=== PATIENT | female | born 1950 | race African-American/Black ===

== ENCOUNTER 2017-11-29 08:03 | Inpatient (IN) | payer OTHER ==
[~2017-11-29] VITALS: Ht 167.6 cm; Wt 80.0 kg
[~2017-11-29 08:03] MED LIST: ASPIR 8181 MG PO; ATORVASTATIN CA40 M1 PO; ESCITALOPRAM20 M1 PO; HYDRALAZINE HCL25 MG PO; IMODIUM2 MG PO; LANTUS SOLOS100 U/M1 SQ; NEU300 PO; NOVOLOG MIX 70/33 ML SC; OMEPRAZOLE DR20 M1 PO; PLA75 PO; SENSIPAR30 M1 PO
[2017-11-29 09:14] LABS: BASOPHIL % 0.2 % (0-2); PLATELET COUNT 234 x10^3mcL (130-400)
[2017-11-29 09:15] LABS: RED CELL DISTRIBUTION WIDTH 15.1 % (11.5-14.5)
[2017-11-29 09:30] LABS: BILIRUBIN TOTAL 0.5 mg/dL (0.20-1.00); C REACTIVE PROTEIN 2.1 mg/dL (<=0.9); CALCIUM 10.5 mg/dL (8.5-10.1); CARBON DIOXIDE 24.2 mmol/L (21-32); POTASSIUM SERUM 4.5 mmol/L (3.5-5.1); TOTAL PROTEIN, SERUM 7.9 g/dL (6.4-8.2)
[2017-11-29 09:34] LABS: T3 TOTAL 0.69 ng/mL
[2017-11-29 09:35] LABS: CREATININE SERUM 11.9 mg/dL (0.6-1.0)
[2017-11-29 09:37] LABS: microscopic required? YES; urine erythrocyte 1+ (NEGATIVE)
[2017-11-29 09:40] LABS: FREE T4 1.19 ng/dL (0.76-1.46); FREE THYROXINE INDEX 1.8 ug/dL (1.4-4.5); T4(THYROXINE) 5.4 ug/dL (4.7-13.3)
[2017-11-29 09:47] LABS: CK-MB 7.4 ng/mL (0-3.6)
[2017-11-29 10:26] LABS: ERYTHROCYTE SED RATE 26 mm/hr (0-30)
[2017-11-29 11:18] LABS: MAGNESIUM 2.2 mg/dL (1.8-2.4)
[2017-11-29 12:57] VITALS: BP 195/81
[2017-11-29 13:09] VITALS: BP 184/97; BP 195/81
[2017-11-29 15:13] VITALS: BP 167/71
[2017-11-29 16:16] VITALS: BP 170/76
[2017-11-29 21:50] VITALS: BP 140/68
[2017-11-30] VITALS (11 sets, daily range): BP systolic 116–208; BP diastolic 47–92
[2017-11-30 07:06] LABS: BASOPHIL % 0.1 % (0-2); PLATELET COUNT 213 x10^3mcL (130-400)
[2017-11-30 07:22] LABS: RED CELL DISTRIBUTION WIDTH 15.4 % (11.5-14.5)
[2017-11-30 07:39] LABS: CALCIUM 10.2 mg/dL (8.5-10.1); PHOSPHOROUS 7.6 mg/dL (2.5-4.9); POTASSIUM SERUM 3.7 mmol/L (3.5-5.1)
[2017-11-30 07:44] LABS: CREATININE SERUM 8.1 mg/dL (0.6-1.0)
[2017-11-30] MEDS ORDERED: HYDRALAZINE HCL25 MG PO (13:28)
[2017-11-30] MEDS ORDERED: OMEPRAZOLE20 M4 PO (13:29)
[2017-11-30] MEDS ORDERED: GABAPENTIN300 M4 PO (13:30)
[2017-12-01 05:08] VITALS: BP 153/71
[2017-12-01 06:26] LABS: BASOPHIL % 0.3 % (0-2); PLATELET COUNT 210 x10^3mcL (130-400)
[2017-12-01 06:33] LABS: RED CELL DISTRIBUTION WIDTH 14.8 % (11.5-14.5)
[2017-12-01 06:56] LABS: CALCIUM 10.1 mg/dL (8.5-10.1); CARBON DIOXIDE 27.5 mmol/L (21-32); MAGNESIUM 2.1 mg/dL (1.8-2.4)
[2017-12-01 07:32] LABS: CREATININE SERUM 10.4 mg/dL (0.6-1.0); PHOSPHOROUS 9.8 mg/dL (2.5-4.9)
[2017-12-01 09:33] VITALS: BP 148/64
[2017-12-01 13:20] VITALS: BP 150/70
[2017-12-01 16:48] VITALS: BP 120/67
[2017-12-01 21:39] VITALS: BP 97/46
[2017-12-01 22:17] VITALS: BP 100/40
[2017-12-02 05:06] VITALS: BP 141/54
[2017-12-02 06:16] LABS: BASOPHIL % 0.5 % (0-2); PLATELET COUNT 202 x10^3mcL (130-400)
[2017-12-02 07:00] LABS: CALCIUM 10.6 mg/dL (8.5-10.1); CARBON DIOXIDE 27.5 mmol/L (21-32); PHOSPHOROUS 7.3 mg/dL (2.5-4.9); RED CELL DISTRIBUTION WIDTH 15.6 % (11.5-14.5)
[2017-12-02 08:35] LABS: CREATININE SERUM 7.5 mg/dL (0.6-1.0)
[2017-12-02 10:08] VITALS: BP 98/48
[2017-12-02 14:02] VITALS: BP 125/83
[2017-12-02 16:50] VITALS: BP 117/61
[2017-12-02 23:19] VITALS: BP 105/53
[2017-12-03 04:48] VITALS: BP 123/51
[2017-12-03 07:41] LABS: BASOPHIL % 0.4 % (0-2); PLATELET COUNT 176 x10^3mcL (130-400)
[2017-12-03 08:06] LABS: CALCIUM 9.9 mg/dL (8.5-10.1); CARBON DIOXIDE 23.8 mmol/L (21-32); MAGNESIUM 2.1 mg/dL (1.8-2.4); PHOSPHOROUS 7.7 mg/dL (2.5-4.9); POTASSIUM SERUM 4.2 mmol/L (3.5-5.1)
[2017-12-03 08:17] LABS: CREATININE SERUM 9.4 mg/dL (0.6-1.0)
[2017-12-03 08:21] LABS: RED CELL DISTRIBUTION WIDTH 15.2 % (11.5-14.5)
[2017-12-03 08:38] VITALS: BP 132/48
[2017-12-03 08:50] VITALS: Ht 167.6 cm; Wt 80.0 kg
[2017-12-03 13:25] VITALS: BP 132/48
[2017-12-03] MEDS ORDERED: LAC PO (16:26)
[2017-12-03] MEDS ORDERED: LEV250PM IV (16:30)
[2017-12-03 16:42] VITALS: BP 118/79
[2017-12-03] MEDS ORDERED: LEVOFLOXACIN250 MG PO (16:58)
== END 2017-12-03 20:49 | DRG 91 ==
LOC: ED 08:03 → DU 10:01
PROVIDERS: Family Medicine; Specialist
PROC: 5A1D70Z Performance of Urinary Filtration, Intermittent, Less than 6 Hours Per Day (ICD-10-PCS; principal; 2017-11-29)
PROC: 5A1D70Z Performance of Urinary Filtration, Intermittent, Less than 6 Hours Per Day (ICD-10-PCS; 2017-12-01)
PROC: 5A1D70Z Performance of Urinary Filtration, Intermittent, Less than 6 Hours Per Day (ICD-10-PCS; 2017-12-03)
DX: G92 Toxic encephalopathy (principal); N18.6 End stage renal disease; I50.43 Acute on chronic combined systolic (congestive) and diastolic (congestive) heart failure; J18.9 Pneumonia, unspecified organism; N17.0 Acute kidney failure with tubular necrosis; I13.0 Hypertensive heart and chronic kidney disease with heart failure and stage 1 through stage 4 chronic kidney disease, or unspecified chronic kidney disease; J81.1 Chronic pulmonary edema; I16.1 Hypertensive emergency; N39.0 Urinary tract infection, site not specified; T42.8X5A Adverse effect of antiparkinsonism drugs and other central muscle-tone depressants, initial encounter; D63.8 Anemia in other chronic diseases classified elsewhere; E11.51 Type 2 diabetes mellitus with diabetic peripheral angiopathy without gangrene; E11.65 Type 2 diabetes mellitus with hyperglycemia; E83.39 Other disorders of phosphorus metabolism; R31.9 Hematuria, unspecified; K21.9 Gastro-esophageal reflux disease without esophagitis; E83.52 Hypercalcemia; G89.29 Other chronic pain; E11.22 Type 2 diabetes mellitus with diabetic chronic kidney disease; H54.8 Legal blindness, as defined in USA; I25.10 Atherosclerotic heart disease of native coronary artery without angina pectoris; Z88.5 Allergy status to narcotic agent; Z91.012 Allergy to eggs; Z99.2 Dependence on renal dialysis; Z95.5 Presence of coronary angioplasty implant and graft; Z82.5 Family history of asthma and other chronic lower respiratory diseases; Z80.8 Family history of malignant neoplasm of other organs or systems; Y92.89 Other specified places as the place of occurrence of the external cause; Z91.14 Patient's other noncompliance with medication regimen
CPT/HCPCS: 36600; 82962; 83880; 84439; 97110-GP; 97530-GP; J0360; J0696; J1956; J3490; J7030; J7050; Q0092

== ENCOUNTER 2018-06-11 15:08 | Emergency (ER) | payer OTHER ==
[~2018-06-11] VITALS: Ht 165.1 cm; Wt 83.0 kg
[~2018-06-11 15:08] MED LIST changes: +GABAPENTIN300 M4 PO; +LAC PO; +LEV250PM IV; +LEVOFLOXACIN250 MG PO; +OMEPRAZOLE20 M4 PO
[2018-06-11 15:13] VITALS: Ht 165.1 cm; Wt 83.0 kg
[2018-06-11 22:23] LABS: BASOPHIL % 0.1 % (0-2); BILIRUBIN TOTAL 0.37 mg/dL (0.20-1.00); CALCIUM 8.7 mg/dL (8.5-10.1); PLATELET COUNT 298 x10^3mcL (130-400); POTASSIUM SERUM 4.3 mmol/L (3.5-5.1); TOTAL PROTEIN, SERUM 8.2 g/dL (6.4-8.2)
[2018-06-11 22:25] LABS: RED CELL DISTRIBUTION WIDTH 15.2 % (11.5-14.5)
[2018-06-11 22:26] LABS: CREATININE SERUM 9.3 mg/dL (0.6-1.0)
[2018-06-12 01:31] VITALS: BP 147/69
== END 2018-06-12 01:20 | disposition short-term general hospital (02) ==
LOC: ED 15:08
PROVIDERS: Emergency Medicine
DX: S92.351A Displaced fracture of fifth metatarsal bone, right foot, initial encounter for closed fracture (principal); I13.0 Hypertensive heart and chronic kidney disease with heart failure and stage 1 through stage 4 chronic kidney disease, or unspecified chronic kidney disease; E11.22 Type 2 diabetes mellitus with diabetic chronic kidney disease; N18.9 Chronic kidney disease, unspecified; I50.9 Heart failure, unspecified; Z88.5 Allergy status to narcotic agent; Z91.012 Allergy to eggs; W18.39XA Other fall on same level, initial encounter; Y93.89 Activity, other specified; Y92.89 Other specified places as the place of occurrence of the external cause; Y99.8 Other external cause status
CPT/HCPCS: 36415